=== PATIENT | female | born 1965 | race Caucasian/White ===

== ENCOUNTER 2018-10-21 22:28 | Emergency (ER) | payer OTHER ==
[2018-10-21] MEDS ORDERED: diphenhydrAMINE 50 MG/ML VIAL ONE (23:07)
[2018-10-21] MEDS ORDERED: Sodium Chloride 0.9% 1,000 ML ONE (23:07)
[2018-10-21] MEDS ORDERED: Metoclopramide HCl 10 MG/2 ML VIAL ONE (23:07)
== END 2018-10-22 00:08 | disposition home or self-care (01) ==
LOC: NAV ERS 22:28
DX: G43.909 Migraine, unspecified, not intractable, without status migrainosus (principal); F17.210 Nicotine dependence, cigarettes, uncomplicated; Z79.899 Other long term (current) drug therapy
CPT/HCPCS: 96361; 96374; 96375; J1200; J2765; J7050

== ENCOUNTER 2024-07-05 00:57 | Emergency (ER) | payer BC, OTHER ==
[2024-07-05] MEDS ORDERED: Ondansetron PF 4 MG/2 ML Vial ONE (01:35)
[2024-07-05] MEDS ORDERED: Sodium Chloride 0.9% 1,000 ML ONE (01:35)
[2024-07-05 02:16] LABS: #Basophils 0.1 thou/uL (0.0-0.2); #Lymphocytes 1.2 thou/uL (1.20-3.40); #Neutrophils 11.3 thou/uL (1.40-6.50); %Basophils 0.6 % (0.0-1.0); %Eosinophils 0.1 % (0.0-10.0); %Lymphocytes 9.1 % (21.0-51.0); %Monocytes 7.1 % (0.0-10.0); Hematocrit 39.9 % (36.0-47.0); Mean Corpuscular HGB CONC 32.5 g/dL (32.0-36.0); Mean Corpuscular Hemoglobin 30.5 pg (27.0-31.0); Mean Corpuscular Volume 93.8 fl (78.0-98.0); Mean Platelet Volume 6.8 fL (7.4-10.4); Platelet Count 283 10x3/uL (130-400); Red Blood Cell (RBC) Count 4.25 mill/uL (4.20-5.40); White Blood Cell (WBC) Count 13.7 10x3/uL (4.8-10.8)
[2024-07-05 02:23] LABS: Bilirubin Negative (Negative); Blood, Urine Negative (Negative); Clarity Clear (Clear); Glucose, Urine (Dipstick) Negative (Negative); Ketone, Urine Negative (Negative); Leukocyte Trace (Negative); Nitrite Negative (Negative); Protein, Urine (Dipstick) Negative (Neg-Trace); Specific Gravity, Urine 1.015 (1.005-1.030); Urobilinogen 0.2 mg/dL (Less than 2); pH, Urine 5.5 (5.0-9.0)
[2024-07-05 02:29] LABS: Bacteria/HPF 2+ HPF (None Seen); CAUTI Indications for Culture Dysuria,urgency,freq; RBC/HPF 0-3 HPF (0-3); Squamous Epithelial 0-3 HPF (0-3); Urine Culture Reflex Yes Yes
[2024-07-05 02:32] LABS: ALT (SGPT) 20 U/L (8-55); AST (SGOT) 17 U/L (5-34); Albumin 3.6 g/dL (3.5-5.0); Alkaline Phosphatase 77 U/L (40-110); Anion Gap 13 mmol/L (10-20); BUN (Urea Nitrogen) 14 mg/dL (9.8-20.1); Bilirubin, Total 0.4 mg/dL (0.2-1.2); Calc. Creatinine Clearance 0 mL/min (70-130); Carbon Dioxide 24 mmol/L (22-29); Chloride 105 mmol/L (98-107); Estimated GFR 72; Globulin 2.9 g/dL (2.4-3.5); Glucose 132 mg/dL (70-105); Protein, Total 6.5 g/dL (6.0-8.3); Sodium 137 mmol/L (136-145)
[2024-07-05 02:33] LABS: Troponin I Less than 0.010 ng/mL (< 0.028)
[2024-07-05] MEDS ORDERED: Cipro 250 MG TAB ONE (03:19)
== END 2024-07-05 03:32 | disposition home or self-care (01) ==
LOC: NAV ERS 00:57
DX: N39.0 Urinary tract infection, site not specified (principal); R42 Dizziness and giddiness; R11.2 Nausea with vomiting, unspecified; F17.290 Nicotine dependence, other tobacco product, uncomplicated
CPT/HCPCS: 80053; 81001; 84484; 85025; 87077; 87086; 87186; 87428; 93005; 96361; 96374; J2405; J7030